=== PATIENT | male | born 1995 | race Caucasian/White ===

== ENCOUNTER 2017-10-11 06:36 | Emergency (ER) | payer OTHER ==
[~2017-10-11] VITALS: Ht 182.9 cm; Wt 100.7 kg
[2017-10-11 06:39] VITALS: TEMP 36.5; Ht 182.9 cm; Wt 100.7 kg
[2017-10-11] MEDS ORDERED: GI COCKTAIL PO STA (07:04)
[2017-10-11] MEDS ORDERED: KETOROLAC TROMETHAMINE 30 MG/ML VIAL IV STA (07:08)
[2017-10-11 07:11] LABS: HEMATOCRIT 43.7 % (42-52); MEAN CELL VOLUME 87.9 fL (80-100); MEAN CORPUSCULAR HEMOGLOBIN 32.2 pg (25-34); MEAN CORPUSCULAR HGB CONC 36.6 g/dl (32-36); MEAN PLATELET VOLUME 10.3 fL (7.4-10.4); NUCLEATED RED BLOOD CELL ABS 0.17 K/uL (0-0); PLATELET COUNT 231 K/uL (130-400); RED CELL DISTRIBUTION WIDTH CV 13.3 % (11.5-14.5); RED CELL DISTRIBUTION WIDTH SD 42.3 fL (36.4-46.3); WHITE BLOOD COUNT 13.24 K/uL (4.8-10.8)
[2017-10-11 07:14] VITALS: O2SAT 95
[2017-10-11] MEDS ORDERED: ALUMINUM/MAGNESIUM SUSP 30 ML UDC ONE (07:16)
[2017-10-11] MEDS ORDERED: LIDOCAINE HCL 2% VISC SOLN 20 ML UDC ONE (07:16)
[2017-10-11 07:39] LABS: ALBUMIN 3.9 gm/dl (3.4-5.0); ALT/SGPT 43 U/L (12-78); BLOOD UREA NITROGEN 13 mg/dl (7-18); CALCIUM 8.6 mg/dl (8.5-10.1); CARBON DIOXIDE 22 mmol/L (21-32); CREATININE 0.89 mg/dl (0.60-1.40); GLUCOSE 112 mg/dl (70-99); LIPASE 119 U/L (73-393); SODIUM 139 mmol/L (136-145)
[2017-10-11 07:42] LABS: POTASSIUM 4.1 mmol/L (3.5-5.1)
[2017-10-11 07:43] LABS: AST/SGOT 30 U/L (15-37)
--- NOTE | 2017-10-11 07:47 | DIAGNOSTIC IMAGING REPORT ---
CHEST ONE VIEW PORTABLE HISTORY: Atypical CHEST PAIN COMPARISON: None. FINDINGS: The lungs are clear. Cardiac silhouette is normal in size. No pleural effusions. No pneumothorax. IMPRESSION: No acute process. Electronically signed by: Gokul Mcelroy M.D. 10/11/2017 7:45 AM Dictated Date/Time: 10/11/2017 7:44 AM
[2017-10-11 07:48] LABS: ALKALINE PHOSPHATASE 110 U/L (45-117); CKMB 2.1 ng/ml (0.5-3.6); TOTAL PROTEIN 7.4 gm/dl (6.4-8.2)
--- NOTE | 2017-10-11 07:56 | EMERGENCY ROOM VISIT NOTE ---
History Report prepared by Tobi: Neymar Chandler Under the Supervision of: Dr. Tre Wilkins M.D. First contact with patient: 07:00 Chief Complaint: CHEST PAIN Stated Complaint: CHEST PAINS Nursing Triage Summary: pt reports mid chest pain/pressure for the past three hours. History of Present Illness The patient is a 22 year old male who presents to the Emergency Room with complaints of worsening dull centralized chest pain that began a couple of hours ago. He rates his pain a 9/10 in severity. He has a past medical history of HSP and osteomyelitis. Earlier this morning, the patient was lying in bed when his pain began. It started as a mild dull pain that worsened significantly into a sharp pain. He notes that he has gotten chest pains occasionally before, but they have never felt like this. He did not take any medications for the pain or do anything abnormal that may have caused it. He states that last night , he was completely at baseline. He tried to drink some water earlier and had a small amount of relief for a very short amount of time. His chest pain is exacerbated with deep inhalation. He notes some mild right sided rib pain as well. Pt denies LOC, headache, fevers, chills, diaphoresis, visual changes, neck pain, breathing difficulties, nausea, vomiting, abdominal pain, back pain, melena, hematochezia, urinary symptoms, numbness, weakness, lymphadenopathy, rash, or other complaints. He does not take any medications. He denies any known family history. Source of History: patient Onset: a couple of hours ago Position: chest (centralized) Symptom Intensity: 9/10 Quality: sharp Timing: worsening Modifying Factors (Worsening): breathing (deep inhalation) Note: He is experiencing some right sided rib pain. Review of Systems See HPI for pertinent positives and negatives. A total of ten systems were reviewed and were otherwise negative. Past Medical & Surgical Medical Problems: (1) HSP (Henoch Schonlein purpura) (2) Osteomyelitis Family History Patient reports no known family medical history. Social History Smoking Status: Current Every Day Smoker Alcohol Use: none Drug Use: none Occupation Status: student Current/Historical Medications No Active Prescriptions or Reported Meds Allergies Coded Allergies: Clindamycin (Verified Allergy, Intermediate, HIVES, 10/11/17) Physical Exam Vital Signs Date Time Temp Pulse Resp B/P (MAP) Pulse Ox O2 Delivery O2 Flow Rate FiO2 10/11/17 10:31 83 18 113/60 94 Room Air 10/11/17 08:55 90 127/74 97 Room Air 10/11/17 08:26 88 18 154/69 95 Room Air 10/11/17 07:14 95 Room Air 10/11/17 07:01 94 18 150/95 96 Room Air 10/11/17 06:50 93 10/11/17 06:39 36.5 88 18 137/88 97 Room Air Physical Exam GENERAL: Awake, alert, uncomfortable appearing, in no distress HENT: Normocephalic, atraumatic. Oropharynx unremarkable. EYES: Normal conjunctiva. Sclera non-icteric. NECK: Supple. No nuchal rigidity. FROM. No JVD. RESPIRATORY: Clear to auscultation. CARDIAC: Regular rate, normal rhythm. Extremities warm and well perfused. Pulses equal. ABDOMEN: Soft, non-distended. No tenderness to palpation. No rebound or guarding. No masses. RECTAL: Deferred. MUSCULOSKELETAL: Chest examination reveals moderate anterior costal margin tenderness. The back is symmetrical on inspection without obvious abnormality. There is no CVA tenderness to palpation. No joint edema. LOWER EXTREMITIES: Calves are equal size bilaterally and non-tender. No edema. No discoloration. NEURO: Normal sensorium. No sensory or motor deficits noted. SKIN: No rash or jaundice noted. Medical Decision & Procedures ER Provider Diagnostic Interpretation: Radiology results as stated below per my review and radiologist interpretation: CHEST ONE VIEW PORTABLE HISTORY: Atypical CHEST PAIN COMPARISON: None. FINDINGS: The lungs are clear. Cardiac silhouette is normal in size. No pleural effusions. No pneumothorax. IMPRESSION: No acute process. Electronically signed by: Gokul Mcelroy M.D. 10/11/2017 7:45 AM Dictated Date/Time: 10/11/2017 7:44 AM ABDOMINAL ULTRASOUND, RIGHT UPPER QUADRANT HISTORY: Right upper quadrant abdominal pain.. COMPARISON: None. FINDINGS: Pancreas: The pancreas demonstrates a normal echotexture. Liver: Unremarkable. Gallbladder: No gallbladder wall thickening. No gallstones. The gallbladder appears slightly contracted. CBD: 4 mm. Right kidney: No hydronephrosis. IMPRESSION: No significant abnormality identified within the right upper quadrant. Electronically signed by: Gokul Mcelroy M.D. 10/11/2017 9:15 AM Dictated Date/Time: 10/11/2017 9:14 AM Laboratory Results 10/11/17 06:50 Red Blood Count 4.97, Mean Corpuscular Volume 87.9, Mean Corpuscular Hemoglobin 32.2, Mean Corpuscular Hemoglobin Concent 36.6, Mean Platelet Volume 10.3, Neutrophils (%) (Auto) 64.5, Lymphocytes (%) (Auto) 20.7, Monocytes (%) (Auto) 11.0, Eosinophils (%) (Auto) 2.6, Basophils (%) (Auto) 0.8, Neutrophils # (Auto ) 8.54, Lymphocytes # (Auto) 2.74, Monocytes # (Auto) 1.46, Eosinophils # (Auto ) 0.35, Basophils # (Auto) 0.10 10/11/17 06:50 Test 10/11/17 06:50 10/11/17 07:09 10/11/17 10:04 White Blood Count 13.24 K/uL (4.8-10.8) Red Blood Count 4.97 M/uL (4.7-6.1) Hemoglobin 16.0 g/dL (14.0-18.0) Hematocrit 43.7 % (42-52) Mean Corpuscular Volume 87.9 fL (80-100) Mean Corpuscular Hemoglobin 32.2 pg (25-34) Mean Corpuscular Hemoglobin Concent 36.6 g/dl (32-36) Platelet Count 231 K/uL (130-400) Mean Platelet Volume 10.3 fL (7.4-10.4) Neutrophils (%) (Auto) 64.5 % Lymphocytes (%) (Auto) 20.7 % Monocytes (%) (Auto) 11.0 % Eosinophils (%) (Auto) 2.6 % Basophils (%) (Auto) 0.8 % Neutrophils # (Auto) 8.54 K/uL (1.4-6.5) Lymphocytes # (Auto) 2.74 K/uL (1.2-3.4) Monocytes # (Auto) 1.46 K/uL (0.11-0.59) Eosinophils # (Auto) 0.35 K/uL (0-0.5) Basophils # (Auto) 0.10 K/uL (0-0.2) RDW Standard Deviation 42.3 fL (36.4-46.3) RDW Coefficient of Variation 13.3 % (11.5-14.5) Immature Granulocyte % (Auto) 0.4 % Immature Granulocyte # (Auto) 0.05 K/uL (0.00-0.02) Nucleated RBC Absolute Count (auto) 0.17 K/uL (0-0) Nucleated Red Blood Cells % 1.3 % Anion Gap 8.0 mmol/L (3-11) Est Creatinine Clear Calc Drug Dose 158.6 ml/min Estimated GFR () 139.7 Estimated GFR (Non- 120.5 BUN/Creatinine Ratio 14.7 (10-20) Calcium Level 8.6 mg/dl (8.5-10.1) Total Bilirubin 0.4 mg/dl (0.2-1) Direct Bilirubin < 0.1 mg/dl (0-0.2) Aspartate Amino Transf (AST/SGOT) 30 U/L (15-37) Alanine Aminotransferase (ALT/SGPT) 43 U/L (12-78) Alkaline Phosphatase 110 U/L (45-117) Total Creatine Kinase 339 U/L (39-308) Creatine Kinase MB 2.1 ng/ml (0.5-3.6) Creatine Kinase MB Ratio 0.6 (0-3.0) Total Protein 7.4 gm/dl (6.4-8.2) Albumin 3.9 gm/dl (3.4-5.0) Lipase 119 U/L (73-393) Chemistry Specimen Hemolysis Bedside D-Dimer 444 ng/mlFEU (0-450) Bedside Troponin I < 0.030 ng/ml (0-0.045) Laboratory results reviewed by me Medications Administered Medications (Trade) Dose Ordered Sig/Chelo Route Start Time Stop Time Status Last Admin Dose Admin Ketorolac Tromethamine (Toradol Inj) 15 mg NOW STAT IV 10/11/17 07:08 10/11/17 07:09 DC 10/11/17 07:18 15 MG Al Hydroxide/Mg Hydroxide (Maalox Susp) 30 ml STK-MED ONCE .ROUTE 10/11/17 07:16 10/11/17 07:17 DC 10/11/17 07:18 30 ML Lidocaine HCl (Viscous Lidocaine 2% Soln) 20 ml STK-MED ONCE .ROUTE 10/11/17 07:16 10/11/17 07:17 DC 10/11/17 07:18 10 ML ECG Indication: chest pain Rate (beats per minute): 89 Rhythm: normal sinus Findings: no acute ischemic change, no ectopy, other (No pericarditis) ED Course 0700: The patient was evaluated in room A2. A complete history and physical exam was performed. 0704: Ordered Gi Cocktail 24 ml PO 0708: Ordered Toradol Inj 15 mg IV 0746: Upon reevaluation, the patient is feeling better. 0816: He continues to be well, however his repeat abdominal exam revealed RUQ tenderness. He will need an US. 0957: The patient's US results are negative and is doing well. He is santamaria 1022: The patient's repeat troponin collection was negative. 1040: I reevaluated the patient. Discussed results and discharge instructions: He verbalized understanding and agreement. The patient is ready for discharge. Medical Decision Triage Nursing notes reviewed. The patient's presentation and history were concerning for chest pain. Etiologies such as cardiac ischemia, aortic dissection, pulmonary embolism, pneumonia, pneumothorax, musculoskeletal, infections, gastrointestinal, as well as others were entertained. The patient was evaluated. ECG was non-ischemic and no signs of pericarditis. Chest x-ray is unremarkable. CBC revealed a mild leukocytosis. D-dimer and troponin were normal. Chemistry panel was unremarkable. The patient was given a GI cocktail orally and a dose of Toradol IV. On reassessment he was feeling better. A gallbladder ultrasound was performed. This was negative. The patient's repeat troponin was negative. Repeat abdominal examination was benign. Abnormality is that the patient has a leukocytosis on his CBC and his physical examination reveals some persistent costal margin tenderness. He also has some parasternal rib tenderness. This may be costochondritis. The patient denies any inciting events. He will need close follow-up. Patient and family felt comfortable with conservative management as his symptoms have basically resolved with the above treatment. If he worsens in any way he will be back. Conservative management was discussed.I gave my usual and customary discussion regarding this issue. By the evaluation outlined above other emergent etiologies such as those listed in the differential, as well as others, were deemed relatively unlikely. The patient was educated about the findings as listed above. All questions were answered and the patient was pleased with the treatment. Return instructions were outlined and the patient was discharged in stable condition. The patient was referred to his PCP for follow-up for a recheck of the current condition. Medication Reconcilliation Current Medication List: was personally reviewed by me Blood Pressure Screening Patient's blood pressure: Normal blood pressure Blood pressure disposition: Did not require urgent referral Impression Primary Impression: Precordial chest pain Additional Impression: Acute costochondritis Scribe Attestation The scribe's documentation has been prepared under my direction and personally reviewed by me in its entirety. I confirm that the note above accurately reflects all work, treatment, procedures, and medical decision making performed by me. Departure Information Dispostion Home / Self-Care Prescriptions No Active Prescriptions or Reported Meds Referrals No Doctor, Assigned (PCP) Forms HOME CARE DOCUMENTATION FORM, IMPORTANT VISIT INFORMATION, Work Instructions Patient Instructions My [facility] Additional Instructions CHEST PAIN INSTRUCTIONS: Ibuprofen(Motrin, Advil) may be used for fever or pain. Use 600mg every six hours as needed. Take with food. Avoid using more than 2400mg in a 24 hour period. Do not use 2400mg per day for more than three consecutive days without physician direction. Prolonged inappropriate use can lead to stomach upset or ulcers. (AND/OR) Acetaminophen(Tylenol) may be used for fever or pain. Use 1000mg every six hours as needed. Avoid using more than 4000mg in a 24 hour period. Rest and drink plenty of fluids as tolerated. Continue current medications. Avoid strenuous activities and anything that worsens your pain. Resume normal activities once your symptoms resolve. Return to the ER immediately for worsening or persistent chest pain, abdominal pain, vomiting, fevers, chest pains, difficulty breathing, worsening of your condition, or as needed. Follow up with your primary physician in 1-2 days for a recheck of your current condition. Problem Qualifiers
[2017-10-11 08:31] LABS: BASO % 0.8 %; EOS % 2.6 %; EOS ABS # 0.35 K/uL (0-0.5); IG# 0.05 K/uL (0.00-0.02); LYMPH % 20.7 %; LYMPH ABS # 2.74 K/uL (1.2-3.4); MONO ABS # 1.46 K/uL (0.11-0.59); NEUT % 64.5 %; NEUT ABS # 8.54 K/uL (1.4-6.5)
--- NOTE | 2017-10-11 09:16 | DIAGNOSTIC IMAGING REPORT ---
ABDOMINAL ULTRASOUND, RIGHT UPPER QUADRANT HISTORY: Right upper quadrant abdominal pain.. COMPARISON: None. FINDINGS: Pancreas: The pancreas demonstrates a normal echotexture. Liver: Unremarkable. Gallbladder: No gallbladder wall thickening. No gallstones. The gallbladder appears slightly contracted. CBD: 4 mm. Right kidney: No hydronephrosis. IMPRESSION: No significant abnormality identified within the right upper quadrant. Electronically signed by: Gokul Mcelroy M.D. 10/11/2017 9:15 AM Dictated Date/Time: 10/11/2017 9:14 AM
[2017-10-11 10:31] VITALS: BP 113/60; PULSE 83; O2SAT 94
== END 2017-10-11 10:53 | disposition home or self-care (01) ==
LOC: C.EDB 06:37 → C.EDA 10:53
DX: R07.2 Precordial pain (principal); M94.0 Chondrocostal junction syndrome [Tietze]; F17.200 Nicotine dependence, unspecified, uncomplicated

== ENCOUNTER 2024-04-04 17:14 | Inpatient (IN) ==
--- NOTE | 2024-04-04 17:24 | Emergency Department Note ---
History of Present Illness General Chief complaint: Back Injury/Pain Stated complaint: BULGING DISCS AT L4, L5 S1 Time Seen by Provider: 04/04/24 17:23 History of Present Illness Maximum Pain Intensity: 9 NAME: IVY NJ AGE: 29 SEX: M : 1995 ARRIVES VIA: Walk-In INFORMANT: Patient ED PROVIDER(S):ALEXSANDER Moralez, Leander Guidry MD The patient is a 29-year-old male who presents to the emergency department for evaluation of left low back pain with radiation to the left leg. He was seen in the emergency department 04/[address] imaging performed, showing a mild symmetric disc bulges of L4-L5 and L5-S1 results in mild spinal canal stenosis. At the time he had no weakness of the lower extremity, was able to ambulate after being medicated. He was sent home with steroids, Flexeril, topical Lidoderm, as well as instructions for [id number] Tylenol. We did discuss strict return precautions at the time including numbness or weakness. He reports today he began to have increasing pain, with inability to flex and extend his left toes. He states he is able to ambulate, however it is severely painful. He denies any loss of bowel or bladder. Home Medications Medication Instructions Recorded Confirmed Type Advil 1 tab PO UD PRN Pain 04/01/24 04/04/24 History Tylenol 1 tab PO UD PRN pain/fever 04/01/24 04/04/24 History cyclobenzaprine 10 mg tablet 10 mg PO TID PRN muscle spasm #10 04/01/24 04/04/24 Rx tabs hydroxyzine HCl 25 mg tablet 25 mg PO Q6H PRN Anxiety 04/01/24 04/04/24 History lidocaine 5 % topical patch 1 patch topical DAILY #15 ea 04/01/24 04/04/24 Rx (Lidoderm) oxycodone 5 mg tablet 5 mg PO Q6H PRN pain #20 tabs 04/07/24 Rx Allergies Allergy/AdvReac Type Severity Reaction Status Date / Time clindamycin Allergy Intermediate HIVES Verified 04/06/24 14:05 Past Med/Surg History Problem List (Updated 04/08/24 @ 19:39 by ALEXSANDER Ortiz) Lumbar disc herniation with radiculopathy (Acute) Acute lumbar radiculopathy (Acute) Acute costochondritis (Acute) Precordial chest pain (Acute) Social History Smoking Status: Heavy tobacco smoker Tobacco Type: Cigarettes Do You Dip or Chew Tobacco: No; Hx Alcohol Use: No Hx Substance Use: No Preferred Language: Mongolian Communication Ability: Effective Senior Net Software Engineer Required: No Beliefs That Will Affect Care: None Current Living Situation: Parent Feels Safe at Home: Yes Assistive Devices: None Physical Exam Vital Signs Vital Signs - 24 hr 04/04/24 17:16 Temperature 36.7 C Temperature Source Temporal Artery Scan Pulse Rate 113 H Pulse Rhythm Regular Respiratory Rate 20 Respiratory Effort / Characteristics Non-Labored Spontaneous Respiratory Depth Normal Blood Pressure 131/61 Blood Pressure Mean 84 Pulse Oximetry 97 Oxygen Delivery Method Room Air Sepsis Recent Fever Within 48 Hours No Sepsis New/Unexplained Change in Mental Status N/A Sepsis Action Taken by Nursing No Action Required VITALS: Vitals are noted on the nurse's note and reviewed by myself. Vital signs stable. GENERAL: 29-year-old male, in no acute distress, nondiaphoretic, well-developed well-nourished. SKIN: The skin was without rashes, erythema, edema, or bruising. HEAD: Normocephalic atraumatic. NECK: Supple without nuchal rigidity. No lymphadenopathy. Cervical spine is nontender. HEART: Regular rate and rhythm without murmurs gallops or rubs. LUNGS: Clear to auscultation bilaterally without wheezes, rales or rhonchi. No retractions or accessory muscle use. ABDOMEN: Positive bowel sounds x 4. Soft, nontender, without masses or organomegaly. Segovia sign negative. No guarding or rebound tenderness. MUSCULOSKELETAL: LLE weakness 3/5 with painful straight leg raise, decreased sensation left. Full ROM left hip, knee, ankle, however, painful. NEURO: Patient was alert and oriented to person place and time. No focal neurological deficits. Course Administered Medications Discontinued Medications Acetaminophen (Acetaminophen 500 Mg Tab) 1,000 mg PO NOW STA Stop: 04/04/24 17:42 Last Admin: 04/04/24 18:07 Dose: 1,000 mg Documented By: JOSEPH Acetaminophen (Acetaminophen 325 Mg Tab) 650 mg PO Q4H PRN PRN Reason: pain/fever Stop: 05/05/24 00:20 Last Admin: 04/06/24 06:49 Dose: 650 mg Documented By: Admin: 04/05/24 16:29 Dose: 650 mg Documented By: Admin: 04/05/24 06:16 Dose: 650 mg Documented By: HB Acetaminophen (Acetaminophen 500 Mg Tab) 1,000 mg PO Q8H PRN PRN Reason: MILD Pain Scale 1,2,3 & Pre PT Stop: 05/06/24 17:01 Last Admin: 04/07/24 06:03 Dose: 1,000 mg Documented By: Admin: 04/06/24 20:40 Dose: 1,000 mg Documented By: MLM Bupivacaine HCl/Epinephrine Bitart (Bupivacaine/Epinephrine 0.25% 1:200,000 30 Ml Vial) Confirm Administered Dose 30 ml .ROUTE .STK-MED ONE Stop: 04/06/24 15:14 Last Admin: 04/06/24 16:00 Dose: 10 ml Documented By: EEG Cefazolin Sodium (Cefazolin 2,000 Mg/15 Ml Iv Push) Confirm Administered Dose 2,000 mg IV .STK-MED ONE Stop: 04/06/24 14:55 Last Admin: 04/06/24 18:13 Dose: Not Given Documented By: LMM Cefazolin Sodium (Cefazolin 330 Mg/Ml 1 Gm Vial) Confirm Administered Dose 990 mg .ROUTE .STK-MED ONE Stop: 04/06/24 15:14 Last Admin: 04/06/24 15:45 Dose: 990 mg Documented By: GMB Cyclobenzaprine HCl (Cyclobenzaprine Hcl 10 Mg Tab) 10 mg PO NOW STA Stop: 04/04/24 17:42 Last Admin: 04/04/24 18:07 Dose: 10 mg Documented By: JSUREKHA Cyclobenzaprine HCl (Cyclobenzaprine Hcl 10 Mg Tab) 10 mg PO TID PRN PRN Reason: muscle spasm Stop: 05/05/24 00:20 Last Admin: 04/05/24 22:58 Dose: 10 mg Documented By: Admin: 04/05/24 06:16 Dose: 10 mg Documented By: HB Dexamethasone Sodium Phosphate (DexamethasonePf 10 Mg/Ml Vial) 10 mg IV NOW ONE Stop: 04/04/24 17:43 Last Admin: 04/04/24 18:08 Dose: 10 mg Documented By: JOSEPH Gadobutrol (Gadobutrol 65ml Vial) 9 ml IV ONCE ONE Stop: 04/04/24 18:45 Last Admin: 04/04/24 18:45 Dose: 9 ml Documented By: CHRIS Hydromorphone HCl (Hydromorphone Inj 0.5 Mg/0.5 Ml Syr) 0.5 mg IV Q3H PRN PRN Reason: Severe Pain (Scale 7, 8, 9,10) Stop: 04/19/24 00:20 Last Admin: 04/06/24 08:35 Dose: 0.5 mg Documented By: Admin: 04/05/24 18:28 Dose: 0.5 mg Documented By: Admin: 04/05/24 08:58 Dose: 0.5 mg Documented By: SOHEILA Hydromorphone HCl (Hydromorphone Inj 2 Mg/Ml Syr/Vial) 0.5 mg IV Q5M PRN PRN Reason: PACU Use Only-Pain Stop: 04/06/24 22:43 Last Admin: 04/06/24 16:36 Dose: 0.5 mg Documented By: Admin: 04/06/24 16:31 Dose: 0.5 mg Documented By: Admin: 04/06/24 16:26 Dose: 0.5 mg Documented By: JEFFRY Dextrose/Sodium Chloride (D5w And 1/2nss) 1,000 mls @ 125 mls/hr IV .Q8H CHARI Stop: 05/05/24 00:20 Last Admin: 04/06/24 18:15 Dose: Not Given Documented By: Infusion: 04/06/24 18:14 Dose: Infused Documented By: Admin: 04/06/24 08:26 Dose: 125 mls/hr Documented By: Infusion: 04/06/24 08:26 Dose: Infused Documented By: Admin: 04/06/24 00:47 Dose: 125 mls/hr Documented By: Infusion: 04/06/24 00:29 Dose: Infused Documented By: Admin: 04/05/24 16:29 Dose: 125 mls/hr Documented By: Infusion: 04/05/24 16:29 Dose: Infused Documented By: Admin: 04/05/24 08:31 Dose: 125 mls/hr Documented By: Infusion: 04/05/24 08:29 Dose: Infused Documented By: Admin: 04/05/24 00:40 Dose: 125 mls/hr Documented By: WALTER Lactated Ringer's (Lr) 1,000 mls @ 15 mls/hr IV .Q24H CHARI Stop: 05/06/24 14:14 Last Admin: 04/07/24 11:14 Dose: Not Given Documented By: Infusion: 04/06/24 15:13 Dose: Infused Documented By: Admin: 04/06/24 14:13 Dose: 15 mls/hr Documented By: BHAVESH Cefazolin Sodium (Ancef 2000mg) 2,000 mg in 15 mls @ 3.75 mls/min IV PREOP ONE; Protocol Stop: 04/06/24 14:54 Last Admin: 04/06/24 15:15 Dose: 3.75 mls/min Documented By: [id number] Lactated Ringer's (Lr) 1,000 mls @ 100 mls/hr IV .Q10H CHARI Stop: 05/06/24 17:01 Last Admin: 04/07/24 04:08 Dose: Not Given Documented By: Infusion: 04/07/24 03:26 Dose: Infused Documented By: MLBrian Admin: 04/06/24 18:20 Dose: 100 mls/hr Documented By: GENE Cefazolin Sodium (Ancef 2000mg) 2,000 mg in 15 mls @ 3.75 mls/min IV Q8H CHAIR; Protocol Stop: 04/07/24 07:03 Last Admin: 04/07/24 06:02 Dose: 3.75 mls/min Documented By: Admin: 04/06/24 22:00 Dose: 3.75 mls/min Documented By: STUART Dexamethasone 6 mg/ Syringe 1.5 mls @ 1 mls/min IV DAILY CHARI Stop: 04/09/24 09:02 Last Admin: 04/07/24 07:55 Dose: 1 mls/min Documented By: GENE Ketorolac Tromethamine (Ketorolac Tromethamine 15 Mg/Ml Vial) 15 mg IV NOW ONE Stop: 04/04/24 17:42 Last Admin: 04/04/24 18:07 Dose: 15 mg Documented By: JOSEPH Ketorolac Tromethamine (Ketorolac 30 Mg/Ml Vial) 30 mg IV Q6H PRN PRN Reason: Pain Last Admin: 04/06/24 23:21 Dose: 30 mg Documented By: STUART Lidocaine (Lidocaine 5% 1 Patch) 1 patch TD NOW STA Stop: 04/04/24 17:42 Last Admin: 04/04/24 19:24 Dose: 1 patch Documented By: PHOENIX Lidocaine (Lidocaine 5% 1 Patch) 1 patch TD DAILY@2100 COUNT INCLUDES THE [facility] Stop: 05/05/24 20:59 Last Admin: 04/06/24 20:41 Dose: Not Given Documented By: Admin: 04/05/24 20:25 Dose: 1 patch Documented By: ATNK Misevetteaneous (Remove Lidoderm Patch) 1 each N/A DAILY@2100 COUNT INCLUDES THE [facility] Stop: 05/04/24 20:59 Last Admin: 04/05/24 00:45 Dose: Not Given Documented By: WALTER Miscellaneous (Remove Lidoderm Patch) 1 each N/A DAILY@0900 COUNT INCLUDES THE [facility] Stop: 05/06/24 08:59 Last Admin: 04/07/24 07:53 Dose: 1 each Documented By: Admin: 04/06/24 08:31 Dose: 1 each Documented By: GENE Monson (Remove Lidoderm Patch) 1 each N/A TODAY@0700 ONE Stop: 04/05/24 07:01 Last Admin: 04/05/24 07:37 Dose: 1 each Documented By: SOHEILA Oxycodone HCl (Oxycodone Hcl Ir 5 Mg Tab (Immediate Release)) 5 mg PO NOW STA Stop: 04/04/24 17:42 Last Admin: 04/04/24 18:07 Dose: 5 mg Documented By: JOSEPH Oxycodone HCl (Oxycodone Hcl Ir 5 Mg Tab (Immediate Release)) 5 mg PO NOW STA Stop: 04/04/24 22:53 Last Admin: 04/04/24 22:59 Dose: 5 mg Documented By: DAMARI Polyethylene Glycol (Polyethylene (Miralax) 17 Gm Pack) 17 gm PO Q6 CHARI Stop: 05/07/24 05:59 Last Admin: 04/07/24 11:13 Dose: 17 gm Documented By: Admin: 04/07/24 06:02 Dose: 17 gm Documented By: STUART Senna/Docusate Sodium (Docusate Sodium/Senna 50/8.6mg Tab) 2 tab PO HS CHARI Stop: 05/06/24 20:59 Last Admin: 04/06/24 20:41 Dose: 2 tab Documented By: STUART Medical Decision Making Differential Diagnosis Musculoskeletal, disc herniation, fracture, metastatic disease, cord compression, discitis, sciatica, cauda equina, infection, aortic disease, renal colic, gastrointestinal, as well as other pathologies. Medical Records Attestation: I reviewed the patient's medical records. Home Medications Current Medication List: was personally reviewed by me Laboratory Data Attestation: I reviewed the patient's lab results. Slight leukocytosis, stable hemoglobin and hematocrit, no significant electrolyte abnormalities, urinalysis negative for infection, ESR negative, CRP negative. 04/07/24 07:33 04/07/24 07:33 Lab Results 04/04/24 Range/Units 17:55 WBC 14.51 H (4.8-10.8) K/ul RBC 5.10 (4.70-6.10) M/uL Hgb 15.4 (14.0-18.0) g/dl Hct 45.2 (42.0-52.0) % MCV 88.6 (80.0-100.0) fL MCH 30.2 (25.0-34.0) pg MCHC 34.1 (32.0-36.0) g/dL RDW Std Deviation 42.6 (36.4-46.3) fL RDW Coeff of Ravindra 13.2 (11.5-14.5) % Plt Count 220 (130-400) K/uL MPV 10.8 (9.4-12.4) fL Immature Gran % (Auto) 0.7 % Neut % (Auto) 86.4 % Lymph % (Auto) 8.6 % [place] % (Auto) 4.0 % Eos % (Auto) 0.0 % Baso % (Auto) 0.3 % Neut # (Auto) 12.54 H (1.40-6.50) K/uL Lymph # (Auto) 1.25 (1.20-3.40) K/uL [place] # (Auto) 0.58 (0.11-0.59) K/uL Eos # (Auto) 0.00 (0.00-0.50) K/uL Baso # (Auto) 0.04 (0.00-0.20) K/uL Immature Gran # (Auto) 0.10 (0.01-0.20) K/uL ESR 5 (0-15) mm/hr Sodium 141 (136-145) mmol/L Potassium 3.8 (3.5-5.1) mmol/L Chloride 107 (98-107) mmol/L Carbon Dioxide 26 (21-32) mmol/L Anion Gap 8 (3-11) BUN 17 (6-23) mg/dl Creatinine 0.84 (0.6-1.4) mg/dl Est Cr Clr Drug Dosing Not Reportable Est GFR ( Amer) 136.2 ml/min Est GFR (Non-Af Amer) 117.5 ml/min BUN/Creatinine Ratio 20.2 H (10-20) Glucose 189 H (70-99(Fasting)) mg/dl Calcium 8.9 (8.6-10.3) mg/dl Total Bilirubin 0.4 (0.2-1.0) mg/dl AST 15 (13-39) U/L ALT 14 (7-52) U/L Alkaline Phosphatase 67 (34-104) U/L C-Reactive Protein < 0.50 (0-0.5) mg/dl Total Protein 6.7 (6.0-8.3) gm/dl Albumin 4.1 (3.4-5.0) gm/dl Globulin 2.6 (2.5-4.0) gm/dl Albumin/Globulin Ratio 1.6 (0.9-2) Blood Pressure Blood Pressure Findings: Normal blood pressure MDM Narrative The patient is a 29-year-old male who arrives to the emergency department for evaluation of left lower back pain worsening over the last 3 days. He was recently seen here in the emergency department by myself on 04/01, and discharged able to ambulate with no lower extremity weakness. He was provided p.o. steroids, cyclobenzaprine, topical Lidoderm, as well as oral Tylenol instructions. Contact information at that time was provided for spine, however, over the last 3 days the pain is worsened, he is having severe difficulty ambulating, and is now exhibiting weakness in the left lower extremity. A saline lock was established, CBC, CMP, ESR, CRP, urinalysis were obtained. CBC shows slight leukocytosis, stable hemoglobin and hematocrit, CMP is unremarkable, ESR negative, CRP negative, urinalysis negative. MRI imaging was obtained which showed an L4-5 complex disc herniation, possible sequestered disc fragments and potential for LEFT L4 and L5 impingement syndrome. No signs of discitis, osteomyelitis, or epidural abscess present. I was able to contact ortho spine who agreed to see the patient with probable surgical intervention the following day. Case management was contacted regarding the need for admission who [facility]. Please refer to his documentation for further patient. Impression & Plan Lumbar disc herniation with radiculopathy Discharge Plan Visit Data Chief Complaint: Back Injury/Pain Stated Complaint: BULGING DISCS AT L4, L5 S1 ED Provider: Leander Guidry ED Midlevel Provider: [place] Discharge Problem: Lumbar disc herniation with radiculopathy Patient Disposition: Admitted As Inpatient Discharge Instructions Interventions: ED Discharge Assessment Last Done: 04/05/24 00:21
[2024-04-04] MEDS: KETOROLAC TROMETHAMINE 15 MG/ML VIAL IV ONE (18:07)
[2024-04-04] MEDS: CYCLOBENZAPRINE HCL 10 MG TAB PO STA (18:07)
[2024-04-04] MEDS: oxyCODONE HCL IR 5 MG TAB (IMMEDIATE RELEASE) PO STA ×2 (18:07→22:59)
[2024-04-04] MEDS: ACETAMINOPHEN 500 MG TAB PO STA (18:07)
[2024-04-04] MEDS: dexAMETHasone**PF** 10 MG/ML VIAL IV ONE (18:08)
[2024-04-04 18:26] LABS: Basophils # (auto) 0.04 K/uL (0.00-0.20); Basophils % (auto) 0.3 %; Hematocrit (blood only) 45.2 % (42.0-52.0); Hemoglobin 15.4 g/dl (14.0-18.0); Immature Granulocytes % (auto) 0.7 %; Lymphocytes # (auto) 1.25 K/uL (1.20-3.40); Lymphocytes % (auto) 8.6 %; Mean Corpuscular Hemoglobin 30.2 pg (25.0-34.0); Mean Corpuscular Hgb Conc 34.1 g/dL (32.0-36.0); Mean Corpuscular Volume 88.6 fL (80.0-100.0); Mean Platelet Volume 10.8 fL (9.4-12.4); Monocytes # (auto) 0.58 K/uL (0.11-0.59); Neutrophils # (auto) 12.54 K/uL (1.40-6.50); Neutrophils % (auto) 86.4 %; Platelet Count 220 K/uL (130-400); RDW Coefficient of Variation 13.2 % (11.5-14.5); RDW Standard Deviation 42.6 fL (36.4-46.3); White Blood Count 14.51 K/ul (4.8-10.8)
[2024-04-04 18:44] LABS: Alanine Aminotransferase 14 U/L (7-52); Albumin Globulin Ratio 1.6 (0.9-2); Albumin Level 4.1 gm/dl (3.4-5.0); Alkaline Phosphatase 67 U/L (34-104); Anion Gap 8 (3-11); Aspartate Aminotransferase 15 U/L (13-39); BUN Creatinine Ratio 20.2 (10-20); Bilirubin,Total 0.4 mg/dl (0.2-1.0); Blood Urea Nitrogen 17 mg/dl (6-23); C Reactive Protein < 0.50 mg/dl (0-0.5); Calcium 8.9 mg/dl (8.6-10.3); Carbon Dioxide 26 mmol/L (21-32); Chloride 107 mmol/L (98-107); Est GFR (African American) 136.2 ml/min; Est GFR (Non-African American) 117.5 ml/min; Globulin 2.6 gm/dl (2.5-4.0); Glucose 189 mg/dl (70-99(Fasting)); Potassium 3.8 mmol/L (3.5-5.1); Sodium 141 mmol/L (136-145); Total Protein 6.7 gm/dl (6.0-8.3)
[2024-04-04] MEDS: GADOBUTROL 65ML VIAL IV ONE (18:45)
[2024-04-04] MEDS: LIDOCAINE 5% 1 PATCH TD STA (19:24)
--- NOTE | 2024-04-04 22:31 | Magnetic Resonance Report ---
Exam(s): MRI L SPINE W/WO Contrast IV Amt: 9 CC MELODY EXAM: MR Lumbar Spine Without and With Intravenous Contrast CLINICAL HISTORY: Reason for exam: worsening sx from last week. TECHNIQUE: Magnetic resonance images of the lumbar spine without and with intravenous contrast in multiple planes. Mild motion artifact. CONTRAST: Patient received 9 CC MELODY of IV contrast COMPARISON: Lumbar spine CT 04/01/24. FINDINGS: Vertebrae: No abnormal enhancement, marrow edema, compression deformity, discitis or osteomyelitis. Conus: No abnormal signal or enhancement. Soft tissues: No epidural hematoma, abscess or abnormal enhancement. DISCS/SPINAL CANAL/NEURAL FORAMINA: L1-L2: Unremarkable. L2-L3: Unremarkable. L3-L4: Unremarkable. L4-L5: Moderate to severe disc space narrowing, with lobular, complex central and leftward disc herniation with small fragments that migrates cephalad and caudad, spanning 2 cm in craniocaudal length, with potential for sequestered disc fragments, that could result in left L4 and L5 impingement syndrome. No central spinal stenosis or foraminal stenosis. L5-S1: Severe disc space narrowing, with annular tear and moderate disc and osteophyte, contained in the ventral epidural fat. No central spinal stenosis or foraminal stenosis. IMPRESSION: 1. L4-5 complex disc herniation, possible sequestered disc fragments and potential for LEFT L4 and L5 impingement syndrome. 2. Degenerative disc disease L5-S1, without disc herniation or spinal stenosis. 3. No abnormal enhancement, spinal stenosis, epidural hematoma/abscess, abnormal conus signal, or discitis/osteomyelitis. Electronically signed by: Claudia Park M.D. 04/04/24 22:30 PM
--- NOTE | 2024-04-05 00:09 | History & Physical Report ---
Date of Service April 04, 2024 Assessment & Plan (1) Acute lumbar radiculopathy: Plan: 29-year-old male with past medical history significant for hypothyroidism, history of GI bleed, history of varicella without complication history of Henoch Schonlein purpura ,presents with severe back pain radiating to his left leg .Patient says 3 months ago when he stood up he felt some pop in his back since then having pain in the back. But since last few days it got worse. . He was in the ER recently and discharged on prednisone and pain medication. But pain was getting progressively worse and he could not put any weight on the left leg. No bowel or bladder incontinence. No fevers. Had an episode of some chest discomfort but currently no chest pain. No shortness of breath. No nausea. No headache. Slight lightheadedness. No runny nose or sore throat or cough. Hemodynamics are okay. Severe back pain radiating to left leg ambulatory dysfunction MRI lumbar spine:L4-5 complex disc herniation, possible sequestered disc fragments and potential for LEFT L4 and L5 impingement syndrome. pain control. NPO. IV fluids. Orthospine consult in a.m. Chest pain? one episode will check ekg and troponin DVT prophylaxis SCDs disposition medical floor full code. History of Present Illness Chief Complaint: severe back pain Primary Care Provider: Azra Whittington PA-C 29-year-old male with past medical history significant for hypothyroidism, history of GI bleed, history of varicella without complication history of Henoch Schonlein purpura ,presents with severe back pain radiating to his left leg .Patient says 3 months ago when he stood up he felt some pop in his back since then having pain in the back. But since last few days it got worse. . He was in the ER recently and discharged on prednisone and pain medication. But pain was getting progressively worse and he could not put any weight on the left leg. No bowel or bladder incontinence. No fevers. Had an episode of some chest discomfort but currently no chest pain. No shortness of breath. No nausea. No headache. Slight lightheadedness. No runny nose or sore throat or cough. Hemodynamics are okay. Past medical history. As mentioned above Past surgical history. Biopsy of bone. Removal of pilonidal cyst. Social history. Smokes about 1 pack a day for last 11 years. No alcohol use. No drug use. Family history. Father had coronary disease. Mother has thyroid disorder. Sister has depression. Brother has depression. Allergies Allergy/AdvReac Type Severity Reaction Status Date / Time clindamycin Allergy Intermediate HIVES Verified 10/11/17 07:03 Home Medications Medication Instructions Recorded Confirmed Type Advil 1 tab PO UD PRN Pain 04/01/24 04/04/24 History Tylenol 1 tab PO UD PRN pain/fever 04/01/24 04/04/24 History cyclobenzaprine 10 mg tablet 10 mg PO TID PRN muscle spasm #10 04/01/24 04/04/24 Rx tabs hydroxyzine HCl 25 mg tablet 25 mg PO Q6H PRN Anxiety 04/01/24 04/04/24 History lidocaine 5 % topical patch 1 patch topical DAILY #15 ea 04/01/24 04/04/24 Rx (Lidoderm) prednisone 20 mg tablet 20 mg PO DAILY #23 tabs 04/01/24 04/04/24 Rx Past Med/Surg History Problem List (Updated 04/01/24 @ 21:44 by ALEXSANDER Ortiz) Acute lumbar radiculopathy (Acute) Acute costochondritis (Acute) Precordial chest pain (Acute) Social History Smoking Status: Heavy tobacco smoker Tobacco Type: Cigarettes Do You Dip or Chew Tobacco: No; Tobacco Cessation Education Requested by Patient: No Hx Alcohol Use: No Hx Substance Use: No Preferred Language: Andorran Communication Ability: Effective Refining Engineer Required: No Beliefs That Will Affect Care: None Current Living Situation: Parent Feels Safe at Home: Yes Safety Concerns: Feels Safe At This Time Assistive Devices: None Review of Systems Review of Systems: All systems reviewed & are unremarkable except as noted in HPI & below Physical Exam Physical Exam: General- Not in distress Head- atraumatic Eyes- PERRL. ENT- oropharynx clear Neck- supple, no JVD. Lungs- clear to auscultation no wheezing or crackles Heart- regular rate and rhythm; no murmur, no gallop. Abdomen- normal bowel sounds, soft, nontender, no distension Extremities- no pretibial edema, no erythema Neuro- alert, oriented PERRL no facial palsy; no dysarthria; moves extremities. Musculoskeletal. Left Leg SLR test positive Results & Data Results & Data Vital Signs (Past 12 Hours) Vital Signs Temp Pulse Pulse Resp BP BP Pulse Ox 04/04/24 23:38 83 04/04/24 23:00 81 16 140/88 95 04/04/24 19:39 104 H 04/04/24 17:16 36.7 C 113 H 20 131/61 97 O2 Del Method 04/04/24 23:38 04/04/24 23:00 Room Air 04/04/24 19:39 04/04/24 17:16 Room Air Diagnostic Findings Laboratory Results WBC 14.51 K/ul (4.8-10.8) H 04/04/24 17:55 RBC 5.10 M/uL (4.70-6.10) 04/04/24 17:55 Hgb 15.4 g/dl (14.0-18.0) 04/04/24 17:55 Hct 45.2 % (42.0-52.0) 04/04/24 17:55 MCV 88.6 fL (80.0-100.0) 04/04/24 17:55 MCH 30.2 pg (25.0-34.0) 04/04/24 17:55 MCHC 34.1 g/dL (32.0-36.0) 04/04/24 17:55 RDW Std Deviation 42.6 fL (36.4-46.3) 04/04/24 17:55 RDW Coeff of Ravindra 13.2 % (11.5-14.5) 04/04/24 17:55 Plt Count 220 K/uL (130-400) 04/04/24 17:55 MPV 10.8 fL (9.4-12.4) 04/04/24 17:55 Immature Gran % (Auto) 0.7 % 04/04/24 17:55 Neut % (Auto) 86.4 % 04/04/24 17:55 Lymph % (Auto) 8.6 % 04/04/24 17:55 [place] % (Auto) 4.0 % 04/04/24 17:55 Eos % (Auto) 0.0 % 04/04/24 17:55 Baso % (Auto) 0.3 % 04/04/24 17:55 Neut # (Auto) 12.54 K/uL (1.40-6.50) H 04/04/24 17:55 Lymph # (Auto) 1.25 K/uL (1.20-3.40) 04/04/24 17:55 [place] # (Auto) 0.58 K/uL (0.11-0.59) 04/04/24 17:55 Eos # (Auto) 0.00 K/uL (0.00-0.50) 04/04/24 17:55 Baso # (Auto) 0.04 K/uL (0.00-0.20) 04/04/24 17:55 Immature Gran # (Auto) 0.10 K/uL (0.01-0.20) 04/04/24 17:55 ESR 5 mm/hr (0-15) 04/04/24 17:55 Sodium 141 mmol/L (136-145) 04/04/24 17:55 Potassium 3.8 mmol/L (3.5-5.1) 04/04/24 17:55 Chloride 107 mmol/L (98-107) 04/04/24 17:55 Carbon Dioxide 26 mmol/L (21-32) 04/04/24 17:55 Anion Gap 8 (3-11) 04/04/24 17:55 BUN 17 mg/dl (6-23) 04/04/24 17:55 Creatinine 0.84 mg/dl (0.6-1.4) 04/04/24 17:55 Est Cr Clr Drug Dosing Not Reportable 04/04/24 17:55 Est GFR ( Amer) 136.2 ml/min 04/04/24 17:55 Est GFR (Non-Af Amer) 117.5 ml/min 04/04/24 17:55 BUN/Creatinine Ratio 20.2 (10-20) H 04/04/24 17:55 Glucose 189 mg/dl (70-99(Fasting)) H 04/04/24 17:55 Calcium 8.9 mg/dl (8.6-10.3) 04/04/24 17:55 Total Bilirubin 0.4 mg/dl (0.2-1.0) 04/04/24 17:55 AST 15 U/L (13-39) 04/04/24 17:55 ALT 14 U/L (7-52) 04/04/24 17:55 Alkaline Phosphatase 67 U/L (34-104) 04/04/24 17:55 C-Reactive Protein < 0.50 mg/dl (0-0.5) 04/04/24 17:55 Total Protein 6.7 gm/dl (6.0-8.3) 04/04/24 17:55 Albumin 4.1 gm/dl (3.4-5.0) 04/04/24 17:55 Globulin 2.6 gm/dl (2.5-4.0) 04/04/24 17:55 Albumin/Globulin Ratio 1.6 (0.9-2) 04/04/24 17:55 Impressions Lumbar Spine MRI 04/04/24 17:24 Exam(s): MRI L SPINE W/WO Contrast IV Amt: 9 CC MELODY EXAM: MR Lumbar Spine Without and With Intravenous Contrast CLINICAL HISTORY: Reason for exam: worsening sx from last week. TECHNIQUE: Magnetic resonance images of the lumbar spine without and with intravenous contrast in multiple planes. Mild motion artifact. CONTRAST: Patient received 9 CC MELODY of IV contrast COMPARISON: Lumbar spine CT 04/01/24. FINDINGS: Vertebrae: No abnormal enhancement, marrow edema, compression deformity, discitis or osteomyelitis. Conus: No abnormal signal or enhancement. Soft tissues: No epidural hematoma, abscess or abnormal enhancement. DISCS/SPINAL CANAL/NEURAL FORAMINA: L1-L2: Unremarkable. L2-L3: Unremarkable. L3-L4: Unremarkable. L4-L5: Moderate to severe disc space narrowing, with lobular, complex central and leftward disc herniation with small fragments that migrates cephalad and caudad, spanning 2 cm in craniocaudal length, with potential for sequestered disc fragments, that could result in left L4 and L5 impingement syndrome. No central spinal stenosis or foraminal stenosis. L5-S1: Severe disc space narrowing, with annular tear and moderate disc and osteophyte, contained in the ventral epidural fat. No central spinal stenosis or foraminal stenosis. IMPRESSION: 1. L4-5 complex disc herniation, possible sequestered disc fragments and potential for LEFT L4 and L5 impingement syndrome. 2. Degenerative disc disease L5-S1, without disc herniation or spinal stenosis. 3. No abnormal enhancement, spinal stenosis, epidural hematoma/abscess, abnormal conus signal, or discitis/osteomyelitis. Electronically signed by: Claudia Park M.D. 04/04/24 22:30 PM Code Status & VTE Plan VTE Prophylaxis Plan VTE Prophylaxis will be ordered: Yes
[2024-04-05] MEDS ORDERED: POLYETHYLENE (MIRALAX) 17 GM PACK PO PRN (00:21)
[2024-04-05] MEDS ORDERED: HYDROmorphone INJ 0.5 MG/0.5 ML SYR IV PRN (00:21)
[2024-04-05] MEDS ORDERED: hydrOXYzine HCl 25 MG TAB PO PRN (00:21)
[2024-04-05] MEDS: D5W AND 1/2NSS 1,000 ML IV SCH (00:40)
[2024-04-05] MEDS: ACETAMINOPHEN 325 MG TAB PO PRN (06:16)
[2024-04-05] MEDS: CYCLOBENZAPRINE HCL 10 MG TAB PO PRN (06:16)
[2024-04-05 06:49] LABS: Basophils % (auto) 0.1 %; Hematocrit (blood only) 44.5 % (42.0-52.0); Hemoglobin 15.1 g/dl (14.0-18.0); Immature Granulocytes % (auto) 0.8 %; Lymphocytes % (auto) 10.2 %; Mean Corpuscular Hemoglobin 30.1 pg (25.0-34.0); Mean Corpuscular Hgb Conc 33.9 g/dL (32.0-36.0); Mean Corpuscular Volume 88.6 fL (80.0-100.0); Mean Platelet Volume 10.5 fL (9.4-12.4); Monocytes # (auto) 1.34 K/uL (0.11-0.59); Monocytes % (auto) 6.2 %; Neutrophils # (auto) 17.91 K/uL (1.40-6.50); Neutrophils % (auto) 82.7 %; Platelet Count 202 K/uL (130-400); RDW Coefficient of Variation 12.9 % (11.5-14.5); RDW Standard Deviation 41.5 fL (36.4-46.3); Red Blood Count 5.02 M/uL (4.70-6.10); White Blood Count 21.66 K/ul (4.8-10.8)
[2024-04-05 06:50] LABS: Basophils # (auto) 0.03 K/uL (0.00-0.20); Immature Granulocytes # (auto) 0.18 K/uL (0.01-0.20)
[2024-04-05 07:00] LABS: Anion Gap 6 (3-11); BUN Creatinine Ratio 24.6 (10-20); Blood Urea Nitrogen 16 mg/dl (6-23); Calcium 8.5 mg/dl (8.6-10.3); Carbon Dioxide 24 mmol/L (21-32); Chloride 108 mmol/L (98-107); Creatinine Clr Calc Pharmacy 182.4 ml/min; Est GFR (African American) > 150.0 ml/min; Est GFR (Non-African American) 130.6 ml/min; Glucose 125 mg/dl (70-99(Fasting)); Sodium 138 mmol/L (136-145)
[2024-04-05 08:09] LABS: Troponin I High Sensitivity 3.8 pg/ml (0-20)
--- NOTE | 2024-04-05 08:14 | Hospitalist Progress Note ---
Date of Service April 05, 2024 Assessment & Plan (1) Acute lumbar radiculopathy: (2) Lumbar disc herniation with radiculopathy: Plan Pt is a 29-year-old male with past medical history significant for hypothyroidism, history of GI bleed, history of varicella without complication, history of Henoch Schonlein purpura who presented with severe back pain radiating to his left leg. Patient states 3 months ago, he stood up and felt a pop in his back. Since then he has been having pain in the back, currently worsening. He was in the ER recently and discharged on prednisone and pain medication. But pain was getting progressively worse and he could not put any weight on the left leg. No bowel or bladder incontinence. No fevers. Had an episode of some chest discomfort but currently no chest pain. No shortness of breath. Disc Herniation Possible Left L4/L5 Impingement Syndrome severe back pain on presentation radiating to left leg ambulatory dysfunction MRI lumbar spine:L4-5 complex disc herniation, possible sequestered disc fragme nts and potential for LEFT L4 and L5 impingement syndrome. Continue pain control Orthospine consulted, appreciate recs. Recommended the following: -Assessment lumbar disc herniation L4-5 with a fragment on the left creating significant radiculopathy and neurologic compromise. MRI dated 04/04/2024 available [facility] does demonstrate evidence of degenerative disc disease L4-L5 L5-S1. There is trace anterior listhesis at L5-S1 with a small annular tear. L4-L5 has evidence of a large disc herniation on the left with a fragment migrating caudally directly impinging the traversing L5 nerve root. Plan in length yesterday with the patient reviewing his clinical presentation and symptom complex. He can continue with pain medications in terventional pain management ultimately surgical invention. Surgery require a microdiscectomy L4-5 on the left with excision of herniated fragment. Patient is in extreme discomfort with sensory deficits and weakness and would like to pursue surgical invention in light of his situation. Risk benefits pros cons alternatives in detail. Will make him n.p.o. after midnight and plan for surgery tomorrow Pt NPO after midnight for surgical evaluation tomorrow Chest pain one episode troponin normal EKG pending Anxiety Continue home vistaril prn Diet: regular, NPO after midnight DVT prophylaxis:SCDs Dispo: to be determined postop Admission and Anticipated Discharge Date Admission Date: April 04, 2024 Subjective Pt was seen while still down in the ED. Stated that pain was well controlled at that time. Will be having surgery tomorrow. Mom present at bedside. Otherwise denied acute concerns. Review of Systems Review of Systems: All systems reviewed & are unremarkable except as noted in Subjective Physical Exam Physical Exam: General: Alert, oriented. No acute distress Skin: No noted rashes or bruises Psych: Appropriate mood and affect Neuro: difficulty with movements in the bed HEENT: NC/AT Chest: Nontender to palpation. CV: RRR Resp: no increased effort of breathing Abdomen: Soft, nontender, nondistended Extremities: No edema in lower extremities bilaterally. Results & Data Results & Data Vital Signs (Past 12 Hours) Vital Signs Pulse Pulse Resp BP Pulse Ox O2 Del Method 04/05/24 07:41 16 161/83 H 97 04/05/24 03:11 65 16 109/74 95 Room Air 04/05/24 00:21 70 16 124/69 94 Room Air 04/04/24 23:38 83 04/04/24 23:00 81 16 140/88 95 Room Air Diagnostic Findings Lumbar Spine MRI 04/04/24 17:24 Exam(s): MRI L SPINE W/WO Contrast IV Amt: 9 CC MELODY EXAM: MR Lumbar Spine Without and With Intravenous Contrast CLINICAL HISTORY: Reason for exam: worsening sx from last week. TECHNIQUE: Magnetic resonance images of the lumbar spine without and with intravenous contrast in multiple planes. Mild motion artifact. CONTRAST: Patient received 9 CC MELODY of IV contrast COMPARISON: Lumbar spine CT 04/01/24. FINDINGS: Vertebrae: No abnormal enhancement, marrow edema, compression deformity, discitis or osteomyelitis. Conus: No abnormal signal or enhancement. Soft tissues: No epidural hematoma, abscess or abnormal enhancement. DISCS/SPINAL CANAL/NEURAL FORAMINA: L1-L2: Unremarkable. L2-L3: Unremarkable. L3-L4: Unremarkable. L4-L5: Moderate to severe disc space narrowing, with lobular, complex central and leftward disc herniation with small fragments that migrates cephalad and caudad, spanning 2 cm in craniocaudal length, with potential for sequestered disc fragments, that could result in left L4 and L5 impingement syndrome. No central spinal stenosis or foraminal stenosis. L5-S1: Severe disc space narrowing, with annular tear and moderate disc and osteophyte, contained in the ventral epidural fat. No central spinal stenosis or foraminal stenosis. IMPRESSION: 1. L4-5 complex disc herniation, possible sequestered disc fragments and potential for LEFT L4 and L5 impingement syndrome. 2. Degenerative disc disease L5-S1, without disc herniation or spinal stenosis. 3. No abnormal enhancement, spinal stenosis, epidural hematoma/abscess, abnormal conus signal, or discitis/osteomyelitis. Electronically signed by: Claudia Park M.D. 04/04/24 22:30 PM
--- NOTE | 2024-04-05 08:35 | Orthopedic Consultation ---
Date of Consultation April 05, 2024 Assessment & Plan (1) Lumbar disc herniation with radiculopathy: Assessment lumbar disc herniation L4-5 with a fragment on the left creating significant radiculopathy and neurologic compromise. MRI dated 04/04/2024 available for review [facility] does demonstrate evidence of degenerative disc disease L4-L5 L5-S1. There is trace anterior listhesis at L5-S1 with a small annular tear. L4-L5 has evidence of a large disc herniation on the left with a fragment migrating caudally directly impinging the traversing L5 nerve root. Plan in length yesterday with the patient reviewing his clinical presentation and symptom complex. He can continue with pain medications interventional pain management ultimately surgical invention. Surgery require a microdiscectomy L4-5 on the left with excision of herniated fragment. Patient is in extreme discomfort with sensory deficits and weakness and would like to pursue surgical invention in light of his situation. Risk benefits pros cons alternatives in detail. Will make him n.p.o. after midnight and plan for surgery tomorrow History of Present Illness Reason for Consultation: Left lumbar radiculopathy Attending Physician: Alejandra Nicholas MD History of Present Illness This a very pleasant 29-year-old male who presents emergency room last night with inability ambulate. He describes a history of approximately 3 months of back pain across the lumbosacral junction but last Thursday the symptoms began radiating down his left lower extremity. He describes pain in the left buttock posterior lateral thigh extending to the lower leg and dorsum of his left foot. The right lower extremity is asymptomatic. He states that the past several days it became pain is becoming the past and he is unable to ambulate. He is most comfortable lying in bed at this time with his legs elevated. 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 Denies any precipitating event or trauma. Allergies Allergy/AdvReac Type Severity Reaction Status Date / Time clindamycin Allergy Intermediate HIVES Verified 10/11/17 07:03 Home Medications Medication Instructions Recorded Confirmed Type Advil 1 tab PO UD PRN Pain 04/01/24 04/04/24 History Tylenol 1 tab PO UD PRN pain/fever 04/01/24 04/04/24 History cyclobenzaprine 10 mg tablet 10 mg PO TID PRN muscle spasm #10 04/01/24 04/04/24 Rx tabs hydroxyzine HCl 25 mg tablet 25 mg PO Q6H PRN Anxiety 04/01/24 04/04/24 History lidocaine 5 % topical patch 1 patch topical DAILY #15 ea 04/01/24 04/04/24 Rx (Lidoderm) prednisone 20 mg tablet 20 mg PO DAILY #23 tabs 04/01/24 04/04/24 Rx Patient History Social History Smoking Status: Heavy tobacco smoker Tobacco Type: Cigarettes Do You Dip or Chew Tobacco: No; Tobacco Cessation Education Requested by Patient: No Hx Alcohol Use: No Hx Substance Use: No Preferred Language: Korean Communication Ability: Effective Manager Club Required: No Beliefs That Will Affect Care: None Current Living Situation: Parent Feels Safe at Home: Yes Safety Concerns: Feels Safe At This Time Assistive Devices: None Physical Exam Physical Exam: On exam he exhibits plus 5 out of 5 right-sided extensor houses longus dorsiflexion plantarflexion quadriceps. On the left he has a 4/5 left dorsi flexion with breakaway weakness to the quadriceps. There is marked sensory deficits to cold and light touch to the left lower extremity compared to the right. He has positive tension signs with straight on the left. His contralateral signs on the right. Deep and reflexes diminished. Results & Data Vital Signs (Past 12 Hours) Vital Signs Pulse Pulse Resp BP Pulse Ox O2 Del Method 04/05/24 07:41 16 161/83 H 97 04/05/24 03:11 65 16 109/74 95 Room Air 04/05/24 00:21 70 16 124/69 94 Room Air 04/04/24 23:38 83 04/04/24 23:00 81 16 140/88 95 Room Air
[2024-04-05] MEDS: HYDROmorphone INJ 0.5 MG/0.5 ML SYR IV PRN (08:58)
[2024-04-05] MEDS: LIDOCAINE 5% 1 PATCH TD SCH (20:25)
[2024-04-05 23:23] LABS: Appearance Urine Turbid (Clear); Bacteria Urine Automated None Seen (None Seen); Bilirubin Urine Negative (Negative); Blood Urine Negative (Negative); Cast Urine Automated 0-2 /lpf (0-2); Color Urine Yellow; Epithelial Cell Urine Auto 0-2 /hpf (0-2); Glucose Urine UA 3+ (Negative); Ketones Urine Negative (Negative); Leukocyte Esterase Urine Negative (Negative); Nitrite Urine Negative (Negative); Protein Urine Negative (Negative); RBC Urine Automated 0-2 /hpf (0-2); Specific Gravity Urine 1.024 (1.000-1.030); Urobilinogen Urine Negative (Negative); WBC Urine Automated 0-5 /hpf (0-5)
[2024-04-06 08:04] LABS: Hematocrit (blood only) 43.5 % (42.0-52.0); Hemoglobin 15.1 g/dl (14.0-18.0); Mean Corpuscular Hemoglobin 30.8 pg (25.0-34.0); Mean Corpuscular Hgb Conc 34.7 g/dL (32.0-36.0); Mean Corpuscular Volume 88.6 fL (80.0-100.0); Mean Platelet Volume 10.6 fL (9.4-12.4); Platelet Count 204 K/uL (130-400); RDW Coefficient of Variation 13.2 % (11.5-14.5); Red Blood Count 4.91 M/uL (4.70-6.10); White Blood Count 10.95 K/ul (4.8-10.8)
[2024-04-06 08:26] LABS: BUN Creatinine Ratio 20.5 (10-20); Calcium 8.1 mg/dl (8.6-10.3); Creatinine Clr Calc Pharmacy 142.8 ml/min; Est GFR (African American) 136.8 ml/min; Est GFR (Non-African American) 118.1 ml/min; Potassium 3.8 mmol/L (3.5-5.1)
[2024-04-06] MEDS ORDERED: DEXAMETHASONE SOD INJ 4 MG/ML VIAL ONE (10:54)
[2024-04-06] MEDS ORDERED: MIDAZOLAM HCL 1 MG/ML 2ML VIAL ONE (10:54)
[2024-04-06] MEDS ORDERED: GLYCOPYRROLATE 0.2 MG/ML VIAL ONE (10:54)
[2024-04-06] MEDS ORDERED: LIDOCAINE 2% 2 ML VIAL/AMP(20MG/ML) INFIL ONE (10:54)
[2024-04-06] MEDS ORDERED: fentaNYL citrate PF 100 MCG/2 ML VIAL ONE ×2 (10:54→15:34)
[2024-04-06] MEDS ORDERED: ROCURONIUM BROMIDE 10 MG/ML 5 ML VIAL IV ONE (10:54)
[2024-04-06] MEDS ORDERED: PROPOFOL IV EMULSION 10 MG/ML 20 ML VIAL IV ONE (10:54)
[2024-04-06] MEDS ORDERED: ONDANSETRON INJ 2 MG/ML 2 ML VIAL ONE (10:54)
--- NOTE | 2024-04-06 12:27 | Hospitalist Progress Note ---
Date of Service April 06, 2024 Assessment & Plan (1) Acute lumbar radiculopathy: (2) Lumbar disc herniation with radiculopathy: Plan Pt is a 29-year-old male with past medical history significant for hypothyroidism, history of GI bleed, history of varicella without complication, history of Henoch Schonlein purpura who presented with severe back pain radiating to his left leg. Patient states 3 months ago, he stood up and felt a pop in his back. Since then he has been having pain in the back, currently worsening. He was in the ER recently and discharged on prednisone and pain medication. But pain was getting progressively worse and he could not put any weight on the left leg. No bowel or bladder incontinence. No fevers. Had an episode of some chest discomfort but currently no chest pain. No shortness of breath. Disc Herniation Possible Left L4/L5 Impingement Syndrome severe back pain on presentation radiating to left leg ambulatory dysfunction MRI lumbar spine:L4-5 complex disc herniation, possible sequestered disc fragm ents and potential for LEFT L4 and L5 impingement syndrome. Continue pain control Orthospine consulted, appreciate recs. Recommended the following: -Assessment lumbar disc herniation L4-5 with a fragment on the left creating significant radiculopathy and neurologic compromise. -MRI dated 04/04/2024 available for review performed on [facility] does demonstrate evidence of degenerative disc disease L4-L5 L5-S1. -There is trace anterior listhesis at L5-S1 with a small annular tear. -L4-L5 has evidence of a large disc herniation on the left with a fragment migrating caudally directly impinging the traversing L5 nerve root. -He can continue with pain medications interventional pain management ultimately surgical invention. -Surgery require a microdiscectomy L4-5 on the left with excision of herniated fragment. -Patient is in extreme discomfort with sensory deficits and weakness and would like to pursue surgical invention in light of his situation. s/p lumbar laminectomy L4-5 on the left with excision of herniated free fragment on 04/06 Continue to monitor Chest pain one episode troponin normal EKG NSR Anxiety Continue home vistaril prn Diet: regular DVT prophylaxis:SCDs pre-op, per orthospine postop Dispo: to be determined postop Admission and Anticipated Discharge Date Admission Date: April 04, 2024 Subjective Pt was seen before surgery with mother at bedside. Denied acute concerns, pain was controlled at that time. Has been NPO for surgery. Review of Systems Review of Systems: All systems reviewed & are unremarkable except as noted in Subjective Physical Exam Physical Exam: General: Alert, oriented. No acute distress Psych: Appropriate mood and affect HEENT: NC/AT Resp: no increased effort of breathing Abdomen: Soft, nontender Extremities: No edema in lower extremities bilaterally. Results & Data Results & Data Vital Signs (Past 12 Hours) Vital Signs Temp Pulse Resp BP Pulse Ox O2 Del Method 04/06/24 07:30 Room Air 04/06/24 06:56 36.4 C L 78 16 116/62 94 Room Air
--- NOTE | 2024-04-06 12:46 | Electrocardiogram Report ---
Test Reason : Blood Pressure : / mmHG Vent. Rate : 088 BPM Atrial Rate : 088 BPM P-R Int : 146 ms QRS Dur : 086 ms QT Int : 368 ms P-R-T Axes : 065 070 052 degrees QTc Int : 445 ms Normal sinus rhythm Normal ECG When compared with ECG of 11-OCT-2017 06:44, No significant change was found Confirmed by Hudson Hernandez ([id number]) on 04/06/2024 12:46:16 PM Referred By: REFERRED SELF Confirmed By:Werner Hernandez
[2024-04-06] MEDS: LACTATED RINGER'S 1,000 ML IV SCH ×2 (14:13→18:20)
[2024-04-06] MEDS ORDERED: SUGAMMADEX SODIUM 200 MG/2 ML VIAL IV ONE (14:35)
--- NOTE | 2024-04-06 14:41 | Anesthesiology Consultation ---
Date of Service April 06, 2024 Assessment & Plan Consults Requested medical & cardiac Pulmonary History Surgery Operation Date: 04/06/24 07:00 Proposed Procedures p Left L4-L5 Laminectomy - Daniel Meneses DO Height/Weight Height: 6 ft Weight: 89 kg Allergies Allergy/AdvReac Type Severity Reaction Status Date / Time clindamycin Allergy Intermediate HIVES Verified 04/06/24 14:05 Medications Home Medications Medication Instructions Recorded Confirmed Last Taken Advil 1 tab PO UD PRN Pain 04/01/24 04/04/24 Unknown Tylenol 1 tab PO UD PRN pain/fever 04/01/24 04/04/24 Unknown cyclobenzaprine 10 mg tablet 10 mg PO TID PRN muscle spasm #10 04/01/24 04/04/24 Unknown tabs hydroxyzine HCl 25 mg tablet 25 mg PO Q6H PRN Anxiety 04/01/24 04/04/24 Unknown lidocaine 5 % topical patch 1 patch topical DAILY #15 ea 04/01/24 04/04/24 Unknown (Lidoderm) prednisone 20 mg tablet 20 mg PO DAILY #23 tabs 04/01/24 04/04/24 Unknown Active Medications Generic Name Dose Route Start Last Admin Trade Name Freq PRN Reason Stop Dose Admin Acetaminophen 650 mg 04/05/24 00:21 04/06/24 06:49 Acetaminophen 325 Mg Tab PO 05/05/24 00:20 650 mg Q4H PRN Administration pain/fever Cyclobenzaprine HCl 10 mg 04/05/24 00:21 04/05/24 22:58 Cyclobenzaprine Hcl 10 Mg Tab PO 05/05/24 00:20 10 mg TID PRN Administration muscle spasm Hydromorphone HCl 0.5 mg 04/05/24 00:21 04/06/24 08:35 Hydromorphone Inj 0.5 Mg/0.5 Ml Syr IV 04/19/24 00:20 0.5 mg Q3H PRN Administration Severe Pain (Scale 7, 8, 9,10) Dextrose/Sodium Chloride 1,000 mls @ 125 mls/hr 04/05/24 00:21 04/06/24 08:26 D5w And 1/2nss IV 05/05/24 00:20 125 mls/hr .Q8H CHARI Administration Lactated Ringer's 1,000 mls @ 15 mls/hr 04/06/24 14:15 04/06/24 14:13 Lr IV 05/06/24 14:14 15 mls/hr .Q24H CHARI Administration Lidocaine 1 patch 04/05/24 21:00 04/05/24 20:25 Lidocaine 5% 1 Patch TD 05/05/24 20:59 1 patch DAILY@2100 CHARI Administration Miscellaneous 1 each 04/06/24 09:00 04/06/24 08:31 Remove Lidoderm Patch N/A 05/06/24 08:59 1 each DAILY@0900 CHARI Administration NPO Date Last Intake of Fluids: 04/06/24 Time Last Intake of Fluids: 10:00 Last Intake of Fluids Comment: sip of water with meds. Date Last Intake of Solids: 04/05/24 Time Last Intake of Solids: 22:30 Social History Smoking Status: Heavy tobacco smoker Do You Dip or Chew Tobacco: No Hx Alcohol Use: No Hx Substance Use: No Physical Exam Vital Signs Last Vital Signs Temp 36.6 C 04/06/24 14:08 Pulse 77 04/06/24 14:08 Resp 20 04/06/24 14:08 BP 127/73 04/06/24 14:08 Pulse Ox 99 04/06/24 14:08 O2 Del Method Room Air 04/06/24 14:08 Testing Laboratory Results 04/06/24 07:26 04/06/24 07:26 Urine Color Yellow 04/05/24 Unknown Urine Appearance Turbid (Clear) A 04/05/24 Unknown Urine pH 7.0 (4.5-7.5) 04/05/24 Unknown Ur Specific [place] 1.024 (1.000-1.030) 04/05/24 Unknown Urine Protein Negative (Negative) 04/05/24 Unknown Urine Glucose (UA) 3+ (Negative) H 04/05/24 Unknown Urine Ketones Negative (Negative) 04/05/24 Unknown Urine Nitrite Negative (Negative) 04/05/24 Unknown Ur Leukocyte Esterase Negative (Negative) 04/05/24 Unknown Urine WBC (Auto) 0-5 /hpf (0-5) 04/05/24 Unknown Urine RBC (Auto) 0-2 /hpf (0-2) 04/05/24 Unknown U Hyaline Cast (Auto) 0-2 /lpf (0-2) 04/05/24 Unknown U Epithel Cells (Auto) 0-2 /hpf (0-2) 04/05/24 Unknown Urine Bacteria (Auto) None Seen (None Seen) 04/05/24 Unknown
[2024-04-06] MEDS ORDERED: ePHEDrine sulfate 50 MG/ML AMP IV PRN (14:42)
[2024-04-06] MEDS ORDERED: ATROPINE SULFATE 0.1 MG/ML 10ML SYR IV PRN (14:42)
[2024-04-06] MEDS ORDERED: ONDANSETRON INJ 2 MG/ML 2 ML VIAL IV PRN ×2 (14:42→17:02)
--- NOTE | 2024-04-06 14:46 | History & Physical Bridge Note ---
Date of Service April 06, 2024 History & Physical Bridge Note I have examined the patient, reviewed the History & Physical and in the interval since the performance of the History & Physical I have noted the following changes of clinical significance: no changes noted Patient has severe lumbar radiculopathy secondary to acute lumbar disc herniation. He is requiring narcotic medications to control his pain. He is unable to ambulate any reasonable distance secondary to pain and progressive neurologic lower extremity weakness. In light of progressive neurologic deficits narcotic requirements for pain control and recommending emergent lumbar laminectomy L4-L5 on the left.
[2024-04-06] MEDS: ceFAZolin 2000MG 2,000 MG/15 ML SYR IV ONE (15:15)
[2024-04-06] MEDS: ceFAZolin 330 MG/ML 1 GM VIAL ONE (15:45)
[2024-04-06] MEDS: BUPIVACAINE/EPINEPHRINE 0.25% 1:200,000 30 ML VIAL ONE (16:00)
--- NOTE | 2024-04-06 16:01 | Operative Report ---
Post Operative Report Pre & Post Diagnosis Operation Date: 04/06/24 07:00 Pre-Op Diagnosis: Lumbar disc herniation L4-L5 on the left with radiculopathy and motor deficit Post-Op Diagnosis: Same I identified the patient and participated in the time-out.: Yes Procedure Operation Date: 04/06/24 07:00 Actual Procedures None lumbar laminectomy L4-5 on the left with excision of herniated free fragment Surgeon Daniel Meneses, Wood Chopper Laurie Lara Estimated Blood Loss 10 Findings Consistent with Post-Op Diagnosis Specimens None Indications This is a 2-year-old male who presents emergency room yesterday with inability ambulate incapacitating pain. He was diagnosed with a disc herniation L4-5 with evidence of a fragment migrating caudally on the left. In light of his neurologic deficit and severe pain and requiring IV narcotic medication I am recommending emergent laminectomy discectomy. Description of Procedure Patient was met with identified informed consent obtained. Patient was then taken to the operative suite underwent patient placed in a prone position on the Darrell table on top of the Moises frame. All bony promises well-padded eyes inspected to ensure no external pressure placed upon the. This point the lumbar spine was prepped and draped in normal sterile fashion. With the assistance of fluoroscopy then a 5 L4-5 disc space. Small incision was created directly overlying this region. Sharp dissection with assistance of Bovie cautery was then performed to and exposing the interlaminar space at L4-5 on the left. Self-retaining retractors placed. A small laminotomy was created and excised the lateral portion of ligamentum flavum and a small portion of the medial facet to expose the severely compressed traversing L5 nerve root. I was able to mobilize the root medially and several loose fragments of free disc material identified directly into the root and removed in their entirety. The area was explored several times to ensure all fragments addressed. It was then copiously irrigated and closed with subcutaneous Vicryl and 4 Monocryl for final skin closure. Steri-Strips sterile dressing placed. Patient waken taken to PACU stable condition. Please note Laurie Lara was present at the entire procedure and all the patient positioning complex portion of the surgery and final skin closure. I attest to the content of the Intraoperative Record and any orders documented therein. Any exceptions are noted below.
[2024-04-06] MEDS: HYDROmorphone INJ 2 MG/ML SYR/VIAL IV PRN (16:26)
--- NOTE | 2024-04-06 16:26 | Fluoroscopy Report ---
INTRAOPERATIVE RADIOGRAPH CLINICAL HISTORY: L4-L5 laminectomy. Fluoro time: 3 seconds Ka,r: 2.46 mGy FINDINGS: A single spot fluoroscopic image of the lumbar spine is presented. A surgical probe project s posteriorly along the superior endplate of L5. IMPRESSION: Intraoperative image from a lumbar spinal surgery as above. Electronically signed by: Leander Weston M.D. 04/06/2024 4:25 PM
--- NOTE | 2024-04-06 16:46 | Anesthesiology Progress Note ---
Date of Service April 06, 2024 Anesthesia Post Procedure Vital Signs Vital Signs: Temp Pulse Pulse Resp BP Pulse Ox O2 Del Method 04/06/24 16:40 71 12 124/70 95 Room Air 04/06/24 16:30 79 12 137/64 100 Oxymask 04/06/24 16:20 85 16 126/69 100 Oxymask 04/06/24 16:11 36.3 C L 81 18 97/52 L 96 Oxymask 04/06/24 14:08 36.6 C 77 20 127/73 99 Room Air 04/06/24 07:30 Room Air 04/06/24 06:56 36.4 C L 78 16 116/62 94 Room Air 04/05/24 19:51 36.6 C 79 16 125/74 96 Room Air 04/05/24 18:00 36.9 C 83 18 123/72 O2 Flow Rate 04/06/24 16:40 04/06/24 16:30 10 04/06/24 16:20 10 04/06/24 16:11 10 04/06/24 14:08 04/06/24 07:30 04/06/24 06:56 04/05/24 19:51 04/05/24 18:00 Pain Intensity Lower Back: Pain Intensity: 2 Transfer of Care Handoff Completed per policy Notes Mental Status: alert / awake / arousable Patient Amnestic to Procedure: Yes Nausea / Vomiting: adequately controlled Pain: adequately controlled Airway Patency, RR, SpO2: stable & adequate BP & HR: stable & adequate Hydration State: stable & adequate Anesthetic Complications: no major complications apparent
[2024-04-06] MEDS ORDERED: DO NOT ADMINISTER FLU VACCINE PRN (17:02)
[2024-04-06] MEDS ORDERED: MAGNESIUM HYDROXIDE SUSP 30 ML UDC PO PRN (17:02)
[2024-04-06] MEDS ORDERED: traMADol HCL 50 MG TABLET PO PRN (17:02)
[2024-04-06] MEDS ORDERED: PROMETHAZINE HCL 12.5 MG in SODIUM CHLORIDE 0.9% 50 ML IV PRN (17:02)
[2024-04-06] MEDS ORDERED: ACETAMINOPHEN 1,000 MG/100 ML VIAL IV PRN (17:02)
[2024-04-06] MEDS ORDERED: oxyCODONE HCL IR 5 MG TAB (IMMEDIATE RELEASE) PO PRN (17:02)
[2024-04-06] MEDS ORDERED: ALUMINUM/MAGNESIUM SUSP 30 ML UDC PO PRN (17:02)
[2024-04-06] MEDS ORDERED: DO NOT ADMINISTER PNEUMOCOCCAL VACCINE PRN (17:02)
[2024-04-06] MEDS ORDERED: FAMOTIDINE 20 MG TAB PO PRN (17:02)
[2024-04-06] MEDS ORDERED: ONDANSETRON 4 MG OD TAB PO PRN (17:02)
[2024-04-06] MEDS ORDERED: NALOXONE HCL 0.4 MG/1 ML VIAL/CARP IV PRN (17:02)
[2024-04-06] MEDS ORDERED: LORazepam 0.5 MG in SYRINGE 0.25 ML IV PRN (17:02)
[2024-04-06] MEDS ORDERED: METOCLOPRAMIDE HCL INJ 5 MG/ML 2 ML VIAL IV PRN (17:02)
[2024-04-06] MEDS ORDERED: bisacodyL 10 MG SUPP PR PRN (17:02)
[2024-04-06] MEDS ORDERED: HYDROmorphone INJ 1 MG/ML SYRINGE IV PRN (17:02)
[2024-04-06] MEDS ORDERED: SOD PHOSPHATE/SOD BIPHOSPHATE ENEMA 132 ML BTL PR PRN (17:02)
[2024-04-06] MEDS ORDERED: diphenhydrAMINE Capsule 25 MG CAP PO PRN (17:02)
[2024-04-06] MEDS ORDERED: HYDROmorphone INJ 0.5 MG/0.5 ML SYR IV PRN (17:02)
[2024-04-06] MEDS ORDERED: LORazepam 0.5 MG TAB PO PRN (17:02)
[2024-04-06] MEDS ORDERED: hydrOXYzine HCl 25 MG TAB PO PRN (17:02)
[2024-04-06] MEDS: ceFAZolin 2,000 MG/15 ML IV PUSH IV ONE (18:13)
[2024-04-06] MEDS: ACETAMINOPHEN 500 MG TAB PO PRN (20:40)
[2024-04-06] MEDS: DOCUSATE SODIUM/SENNA 50/8.6MG TAB PO SCH (20:41)
[2024-04-06] MEDS: ceFAZolin 2000MG 2,000 MG/15 ML SYR IV SCH (22:00)
[2024-04-06] MEDS: KETOROLAC 30 MG/ML VIAL IV PRN (23:21)
[2024-04-07] MEDS: POLYETHYLENE (MIRALAX) 17 GM PACK PO SCH (06:02)
[2024-04-07] MEDS: dexAMETHasone 6 MG in SYRINGE 0 ML IV SCH (07:55)
[2024-04-07 08:24] LABS: Hematocrit (blood only) 46.6 % (42.0-52.0); Mean Corpuscular Hemoglobin 30.4 pg (25.0-34.0); Mean Corpuscular Hgb Conc 34.3 g/dL (32.0-36.0); Mean Corpuscular Volume 88.6 fL (80.0-100.0); Mean Platelet Volume 10.7 fL (9.4-12.4); Platelet Count 238 K/uL (130-400); RDW Coefficient of Variation 12.7 % (11.5-14.5); RDW Standard Deviation 41.7 fL (36.4-46.3); Red Blood Count 5.26 M/uL (4.70-6.10); White Blood Count 23.22 K/ul (4.8-10.8)
[2024-04-07 08:52] LABS: BUN Creatinine Ratio 17.2 (10-20); Calcium 9.1 mg/dl (8.6-10.3); Creatinine Clr Calc Pharmacy 136.3 ml/min; Est GFR (African American) 134.2 ml/min; Est GFR (Non-African American) 115.8 ml/min; Potassium 4.2 mmol/L (3.5-5.1)
--- NOTE | 2024-04-07 12:52 | Discharge Summary ---
Discharge Summary Date of Service April 07, 2024 Principal Dx & Hospital Course #1 = Principal Diagnosis (1) Acute lumbar radiculopathy: (2) Lumbar disc herniation with radiculopathy: Plan Pt is a 29-year-old male with past medical history significant for hypothyroidism, history of GI bleed, history of varicella without complication, history of Henoch Schonlein purpura who presented with severe back pain radiating to his left leg. Patient states 3 months ago, he stood up and felt a pop in his back. Since then he has been having pain in the back, currently worsening. He was in the ER recently and discharged on prednisone and pain medication. But pain was getting progressively worse and he could not put any weight on the left leg. No bowel or bladder incontinence. No fevers. Had an episode of some chest discomfort but currently no chest pain. No shortness of breath. Disc Herniation Possible Left L4/L5 Impingement Syndrome severe back pain on presentation radiating to left leg ambulatory dysfunction MRI lumbar spine:L4-5 complex disc herniation, possible sequestered disc fragments and potential for LEFT L4 and L5 impingement syndrome. Continue pain control [facility] consulted, appreciate recs. Recommended the following: -Assessment lumbar disc herniation L4-5 with a fragment on the left creating significant radiculopathy and neurologic compromise. -MRI dated 04/04/2024 available for review [facility] does demonstrate evidence of degenerative disc disease L4-L5 L5-S1. -There is trace anterior listhesis at L5-S1 with a small annular tear. -L4-L5 has evidence of a large disc herniation on the left with a fragment migrating caudally directly impinging the traversing L5 nerve root. -He can continue with pain medications interventional pain management ultimately surgical invention. -Surgery require a microdiscectomy L4-5 on the left with excision of herniated fragment. -Patient is in extreme discomfort with sensory deficits and weakness and would like to pursue surgical invention in light of his situation. s/p lumbar laminectomy L4-5 on the left with excision of herniated free fragment on 04/06 on postop day 1 pt ambulating well with no pain, eager for discharge pt was discharged by surgical team and pain control provided. Please ensure followup with [facility] after discharge. Chest pain one episode troponin normal EKG NSR Stable Anxiety Continue home vistaril prn Notes For Next Care Provider please ensure orthospine followup Medication Changes From Visit PRN oxycodone per surgical team Admission HPI Per Admitting Provider 29-year-old male with past medical history significant for hypothyroidism, history of GI bleed, history of varicella without complication history of Henoch Schonlein purpura ,presents with severe back pain radiating to his left leg .Patient says 3 months ago when he stood up he felt some pop in his back since then having pain in the back. But since last few days it got worse. . He was in the ER recently and discharged on prednisone and pain medication. But pain was getting progressively worse and he could not put any weight on the left leg. No bowel or bladder incontinence. No fevers. Had an episode of some chest discomfort but currently no chest pain. No shortness of breath. No nausea. No headache. Slight lightheadedness. No runny nose or sore throat or cough. Hemodynamics are okay. Past medical history. As mentioned above Past surgical history. Biopsy of bone. Removal of pilonidal cyst. Social history. Smokes about 1 pack a day for last 11 years. No alcohol use. No drug use. Family history. Father had coronary disease. Mother has thyroid disorder. Sister has depression. Brother has depression. Admission Exam Per Admitting Provider General- Not in distress Head- atraumatic Eyes- PERRL. ENT- oropharynx clear Neck- supple, no JVD. Lungs- clear to auscultation no wheezing or crackles Heart- regular rate and rhythm; no murmur, no gallop. Abdomen- normal bowel sounds, soft, nontender, no distension Extremities- no pretibial edema, no erythema Neuro- alert, oriented PERRL no facial palsy; no dysarthria; moves extremities. Musculoskeletal. Left Leg SLR test positive Discharge Exam General: Alert, oriented. No acute distress Psych: Appropriate mood and affect HEENT: NC/AT Resp: no increased effort of breathing Abdomen: Soft, nontender Extremities: No edema in lower extremities bilaterally. Updated Medication List Medication Instructions Recorded Confirmed Type Advil 1 tab PO UD PRN Pain 04/01/24 04/04/24 History Tylenol 1 tab PO UD PRN pain/fever 04/01/24 04/04/24 History cyclobenzaprine 10 mg tablet 10 mg PO TID PRN muscle spasm #10 04/01/24 04/04/24 Rx tabs hydroxyzine HCl 25 mg tablet 25 mg PO Q6H PRN Anxiety 04/01/24 04/04/24 History lidocaine 5 % topical patch 1 patch topical DAILY #15 ea 04/01/24 04/04/24 Rx (Lidoderm) oxycodone 5 mg tablet 5 mg PO Q6H PRN pain #20 tabs 04/07/24 Rx Hospital Stay Data Consultations 04/04/24 22:53 ED Decision to Admit Stat 04/05/24 08:00 Consult Orthopedic Spine Surgery Routine Procedures Performed Operation Date: 04/06/24 07:00 Actual Procedures p Left L4-L5 Laminectomy(Left) - Daniel Meneses DO Diagnostic Imagining Performed 04/04/24 17:24 MR lumbar spine wo/w con Stat 04/06/24 FL spine 1V any level Routine Lumbar Spine MRI 04/04/24 17:24 Exam(s): MRI L SPINE W/WO Contrast IV Amt: 9 CC MELODY EXAM: MR Lumbar Spine Without and With Intravenous Contrast CLINICAL HISTORY: Reason for exam: worsening sx from last week. TECHNIQUE: Magnetic resonance images of the lumbar spine without and with intravenous contrast in multiple planes. Mild motion artifact. CONTRAST: Patient received 9 CC MELODY of IV contrast COMPARISON: Lumbar spine CT 04/01/24. FINDINGS: Vertebrae: No abnormal enhancement, marrow edema, compression deformity, discitis or osteomyelitis. Conus: No abnormal signal or enhancement. Soft tissues: No epidural hematoma, abscess or abnormal enhancement. DISCS/SPINAL CANAL/NEURAL FORAMINA: L1-L2: Unremarkable. L2-L3: Unremarkable. L3-L4: Unremarkable. L4-L5: Moderate to severe disc space narrowing, with lobular, complex central and leftward disc herniation with small fragments that migrates cephalad and caudad, spanning 2 cm in craniocaudal length, with potential for sequestered disc fragments, that could result in left L4 and L5 impingement syndrome. No central spinal stenosis or foraminal stenosis. L5-S1: Severe disc space narrowing, with annular tear and moderate disc and osteophyte, contained in the ventral epidural fat. No central spinal stenosis or foraminal stenosis. IMPRESSION: 1. L4-5 complex disc herniation, possible sequestered disc fragments and potential for LEFT L4 and L5 impingement syndrome. 2. Degenerative disc disease L5-S1, without disc herniation or spinal stenosis. 3. No abnormal enhancement, spinal stenosis, epidural hematoma/abscess, abnormal conus signal, or discitis/osteomyelitis. Electronically signed by: Claudia Park M.D. 04/04/24 22:30 PM Spine X-Ray 04/06/24 00:00 INTRAOPERATIVE RADIOGRAPH CLINICAL HISTORY: L4-L5 laminectomy. Fluoro time: 3 seconds Ka,r: 2.46 mGy FINDINGS: A single spot fluoroscopic image of the lumbar spine is presented. A surgical probe projects posteriorly along the superior endplate of L5. IMPRESSION: Intraoperative image from a lumbar spinal surgery as above. Electronically signed by: Leander Weston M.D. 04/06/2024 4:25 PM Pending Results Patient Have Any Pending Studies at Discharge: No Discharge Instructions Given to Patient (Per Discharging Provider) ACTIVITY RECOMMENDATIONS: SELF CARE INSTRUCTIONS AFTER A LAMINECTOMY 1. No prolonged sitting (less than 30 minutes for the first 3 weeks after surgery). 2. No bending, lifting more than 5 pounds, or twisting (roll like a log when turning in bed). 3. You may shower 3 days after surgery if no drainage from wound. Thoroughly dry wound. Do not soak in the tub. 4. Please walk as much as you can for exercise. Gradually increase the distance that you walk as your endurance increases. 5. You may drive in 7-10 days if you are comfortable and no longer requiring pain medications. SPECIAL CARE INSTRUCTIONS: VERY IMPORTANT TO READ AND REVIEW A. Your surgical incision has been closed with a cosmetic suture under the skin that will dissolve in about 6 weeks. In 14 days, you can use a pair of clean scissors and cut the suture that is left outside of the skin at the ends of your incision. B. Complications are uncommon, but please contact us if you have any signs or symptoms of: 1. wound infection (fever higher than 102.5 degrees F, redness, separation of wound, drainage, or increasing pain from the incision) 2. blood clots in legs (pain, swelling, redness and warmth in legs) 3. urinary tract infection (fever higher than 102.5 degrees, burning upon urination or increased frequency of urination) 4. nerve problems (inability to walk on your toes or heels, numbness, loss of bowel or bladder control) 5. any other symptoms that concern you. C. Please call the office at if you have any concerns or questions about your operation or recovery. MANAGING PAIN AFTER SPINAL SURGERY 1. Narcotic medication is intended for short-term use and will be provided for surgical pain. Surgical pain usually lasts for a period of 4-6 weeks. Narcotic medication includes Percocet, Vicodin, Darvocet, Tylenol #3 or Lortab. 2. Longer-term pain is more appropriately treated with non-narcotic medication such as Tylenol ES. 3. Muscle spasm is not appropriately treated with narcotics. Muscle relaxers such as Soma, Flexeril or Skelaxin can be used along with Tylenol ES. 4. Remember that we all live with some "aches and pains". This is not unusual or uncommon after an injury or as we get older. 5. We will provide appropriate medication within the normal guidelines of their prescribed use. We will also be very cautious and aware of potential abuse and extended duration of patients' medication needs. 6. Please allow 2-3 days to process refills. Prescriptions will not be mailed but must be picked up at the office. FOLLOW UP VISIT: Keep your scheduled follow-up appointment. Any questions, please call the office at . Total Time Total Time Spent Total Time Spent (In Minutes): 65
== END 2024-04-07 13:01 | disposition home or self-care (01) | DRG 517 ==
LOC: ED 17:14 → EDINP 23:54 → 3W 04-05 00:21